=== PATIENT | male | born 1960 | race Caucasian/White ===

== ENCOUNTER 2018-09-21 15:57 | Outpatient (CLI) ==
--- NOTE | 2018-09-21 16:20 | DI ---
EXAM: LEFT ANKLE 3 VIEWS HISTORY: Ankle pain FINDINGS: There is no fracture or dislocation. General bone density appears grossly normal. There is no joint effusion. Tiny surgical clip along the medial distal tibia. Soft tissue edema or swelli ng is noted. IMPRESSION: 1. No fracture or dislocation identified. Soft tissue swelling.
== END 2018-09-21 15:58 | disposition home or self-care (01) ==
LOC: RAD 15:57
PROVIDERS: ATTEND Nurse Practitioner Family
DX: M25.572 Pain in left ankle and joints of left foot (principal)

== ENCOUNTER 2018-10-03 10:54 | Outpatient (CLI) | payer OTHER | END 2018-10-03 10:55 | disposition home or self-care (01) | LOC: RHC-LAB 10:54 | PROVIDERS: ATTEND Nurse Practitioner Family | DX: E11.9 Type 2 diabetes mellitus without complications (principal); I10 Essential (primary) hypertension; Z86.73 Personal history of transient ischemic attack (TIA), and cerebral infarction without residual deficits | CPT/HCPCS: 36415; 80053; 80061; 82043; 83036; 85025 ==

== ENCOUNTER 2018-10-21 11:25 | Emergency (ER) ==
[2018-10-21 11:31] VITALS: BP 120/76; TEMP 98; BMI 34.9
--- NOTE | 2018-10-21 12:10 | ED.PDOC ---
General ED Provider: Dr. BECKA RUIZ Chief Complaint: Medication Refill Stated Complaint: I have hx of cardiac problems, hypertension, previous CABG and on meds. Called office of PCP this week but apparenty meds were not called in and I am worried that I do not have my meds. Would like to get meds refilled. Observed to be in NAD Time Seen by Physician: 11:45 Mode of Arrival: Walk-In Information Source: Patient Exam Limitations: No limitations Primary Care Provider: EZEQUIEL SIMENTAL Nursing and Triage Documentation Reviewed and Agree: Yes Does patient meet sepsis criteria?: No If yes, has appropriate treatment been initiated?: No System Inflammatory Response Syndrome: Not Applicable Sepsis Protocol: For patient's 13 years and over: Temp is 96.8 and below OR 101 and greater Pulse >90 BPM Resp >20/minute Acutely Altered Mental Status Are patient's symptoms suggestive of a new infection, such as: -Pneumonia -Skin, Soft Tissue -Endocarditis -UTI -Bone, Joint Infection -Implantable Device -Acute Abdominal Infection -Wound Infection -Meningitis -Blood Stream Catheter Infection -Unknown Cardiovascular Complaint Exam - Hypertension Complaint/Exam Onset/Duration: several years Symptoms Are: Still present Timing: Intermittent Aggravating: Reports: None Alleviating: Reports: Rest Associated Signs and Symptoms: Denies: Chest pain, Vision changes, Anxiety, Recent stress, Headache, Numbness, Tingling, Weakness, Dizziness, Short of air, Swelling Related History: Denies: Similar episode Related Surgical History: Reports: Cardiac Cath, CABG Cardiac Risk Factors: Reports: Hypertension, CAD Recent Change in Medications: Yes (out of meds) Carotid Bruit Present: No Femoral Pulses Bounding: No Differential Diagnoses: Drug Withdrawal, Hypertension, Other (Out of meds) Review of Systems - Review Of Systems Constitutional: Reports: No symptoms Eyes: Reports: No symptoms Ears, Nose, Mouth, Throat: Reports: No symptoms Respiratory: Reports: No symptoms Cardiac: Reports: No symptoms GI: Reports: No symptoms : Reports: No symptoms Musculoskeletal: Reports: No symptoms Skin: Reports: No symptoms Neurological: Reports: No symptoms Endocrine: Reports: No symptoms Hematologic/Lymphatic: Reports: No symptoms All Other Systems: Reviewed and Negative Past Medical History - Past Medical History Endocrine: Reports: DM 2 Cardiovascular: Reports: CAD, Hypertension Respiratory: Reports: None Hematological: Reports: None Gastrointestinal: Reports: None Genitourinary: Reports: None Neuro/Psych: Reports: None Musculoskeletal: Reports: None Cancer: Reports: None - Surgical History General Surgical History: Reports: Heart Cath, Other (CABG) - Family History Family History: Reports: Unknown - Social History Smoking Status: Former smoker Hx Substance Use: No Alcohol Screening: None Physical Exam - Physical Exam Appearance: Well-appearing, No pain distress, Well-nourished Eyes: JESSICA, EOMI, Conjunctiva clear ENT: Ears normal, Nose normal, Oropharynx normal Respiratory: Airway patent, Breath sounds clear, Breath sounds equal, Respirations nonlabored Cardiovascular: RRR, Pulses normal, No rub, No murmur GI/: Soft, Nontender, No masses, Bowel sounds normal, No Organomegaly Musculoskeletal: Normal strength, ROM intact, No edema, No calf tenderness Skin: Warm, Dry, Normal color Neurological: Sensation intact, Motor intact, Reflexes intact, Cranial nerves intact, Alert, Oriented Psychiatric: Affect appropriate, Mood appropriate Critical Care Note - Critical Care Note Total Time (mins): 0 Course - Course Vital Signs: Temp Pulse Resp BP Pulse Ox 10/21/18 11:25 98.0 F 66 18 120/76 95 RAY Risk Score RAY Risk Score: Risk Score Odds of by 30D 0 0.1 (0.1-0.2) 1 0.3 (0.2-0.3) 2 0.4 (0.3-0.5) 3 0.7 (0.6-0.9) 4 1.2 (1.0-1.5) 5 2.2 (1.9-2.6) 6 3.0 (2.5-3.6) 7 4.8 (3.8-6.1) Departure - Departure Time of Disposition: 12:25 Disposition: HOME SELF-CARE Discharge Problem: Refill clinic medication management patient, Type II diabetes mellitus, CAD ( coronary artery disease) of artery bypass graft Instructions: Heart Healthy Diet (ED) Condition: Good Pt referred to PMD for follow-up: Yes IPMP verified?: Yes Additional Instructions: Keep follow up apt with PCP Prescriptions: Clopidogrel Bisulfate [Plavix] 1 tab PO DAILY #15 tablet Dexlansoprazole [Dexilant] 30 mg PO DAILY #15 romain.bp Empagliflozin [Jardiance] 25 mg PO DAILY #15 tablet Liraglutide [Victoza 3-Sterling] 0.6 mg SQ DAILY #3 pen.injctr Lisinopril [Zestril] 10 mg PO DAILY #15 tab Metoprolol Tartrate 50 mg PO DAILY #15 tablet Pravastatin Sodium [Pravachol] 40 mg PO BEDTIME #15 tablet Allergies/Adverse Reactions: Allergies No Known Allergies Allergy (Unverified 10/21/18 11:31) Home Medications: Ambulatory Orders Aspirin 81 mg PO DAILY 08/10/18 Clopidogrel Bisulfate [Clopidogrel] 75 mg PO DAILY 08/10/18 Dexlansoprazole [Dexilant] 30 mg PO DAILY 08/10/18 Empagliflozin [Jardiance] 25 mg PO DAILY 08/10/18 Liraglutide [Victoza 3-Sterling] 1.2 mg SQ DAILY 08/10/18 Lisinopril 10 mg PO DAILY 08/10/18 Metoprolol Tartrate 50 mg PO DAILY 08/10/18 Pravastatin Sodium 40 mg PO DAILY 08/10/18 Clopidogrel Bisulfate [Plavix] 1 tab PO DAILY #15 tablet 10/21/18 Dexlansoprazole [Dexilant] 30 mg PO DAILY #15 cap.bp 10/21/18 Empagliflozin [Jardiance] 25 mg PO DAILY #15 tablet 10/21/18 Liraglutide [Victoza 3-Sterling] 0.6 mg SQ DAILY #3 pen.injctr 10/21/18 Lisinopril [Zestril] 10 mg PO DAILY #15 tab 10/21/18 Metoprolol Tartrate 50 mg PO DAILY #15 tablet 10/21/18 Pravastatin Sodium [Pravachol] 40 mg PO BEDTIME #15 tablet 10/21/18 Disposition Discussed With: Patient, Family Additional Comments Additional Comments: No other physical complaints
== END 2018-10-21 12:50 | disposition home or self-care (01) ==
LOC: ED 11:25
DX: E11.9 Type 2 diabetes mellitus without complications (principal); I25.810 Atherosclerosis of coronary artery bypass graft(s) without angina pectoris; I10 Essential (primary) hypertension; Z76.0 Encounter for issue of repeat prescription; Z79.899 Other long term (current) drug therapy
CPT/HCPCS: 99282

== ENCOUNTER 2018-12-13 11:56 | Emergency (ER) | payer OTHER ==
[2018-12-13 12:05] VITALS: BP 142/92; TEMP 98.8; BMI 34.3
[2018-12-13] MEDS ORDERED: ZOFRAN 4 MG/2 ML IM STA (12:32)
--- NOTE | 2018-12-13 13:27 | CT ---
EXAM: CT of the abdomen pelvis without contrast History: Vomiting and abdominal pain. Technique: Multiplanar CT images through the abdomen pelvis were obtained without the administration of IV contrast Findings: Heart is mildly enlarged. Lung bases are clear. No acute osseous abnormalities. The liver is fatty. Status post cholecystectomy. Spleen is unremarkable. No renal stones and no hy dronephrosis. No peripancreatic inflammation. Adrenal glands are unremarkable. The appendix is nor mal. No bowel obstruction. No free air and no ascites. No bladder wall thickening. Prostate is no t significantly enlarged. No perirectal inflammation. Colonic diverticulosis. Impression: 1. No acute intra-abdominal or pelvic process. 2. Colonic diverticulosis. 3. Hepatic steatosis
--- NOTE | 2018-12-13 13:29 | DI ---
EXAM: Two views of the chest. History: Cough. Findings: Heart size is normal. Sternotomy wires. No focal consolidation. No appreciable pleural fluid and no pneumothorax. No acute osseous abnormalities. Impression: No acute cardiopulmonary process
--- NOTE | 2018-12-13 14:02 | ED.PDOC ---
General ED Provider: Dr. JUSTYNA HENDERSON Chief Complaint: Nausea/Vomiting Stated Complaint: NAUSEA, VOMITING ABDOMINAL PAIN Time Seen by Physician: 12:00 Mode of Arrival: Walk-In Information Source: Patient Exam Limitations: No limitations Primary Care Provider: EZEQUIEL SIMENTAL Nursing and Triage Documentation Reviewed and Agree: Yes Does patient meet sepsis criteria?: No If yes, has appropriate treatment been initiated?: No (NURSE PRESENT AT ALL TIMES ) System Inflammatory Response Syndrome: Not Applicable Sepsis Protocol: For patient's 13 years and over: Temp is 96.8 and below OR 101 and greater Pulse >90 BPM Resp >20/minute Acutely Altered Mental Status Are patient's symptoms suggestive of a new infection, such as: -Pneumonia -Skin, Soft Tissue -Endocarditis -UTI -Bone, Joint Infection -Implantable Device -Acute Abdominal Infection -Wound Infection -Meningitis -Blood Stream Catheter Infection -Unknown GI Complaint Exam - Abdominal Pain Complaint/Exam Onset: Gradual Duration: TODAY Symptoms Are: Resolved Timing: Intermittent Initial Severity: Moderate Current Severity: None Location of Pain: Diffuse Character: Reports: Cramping Aggravating: Reports: Food Alleviating: Reports: None Associated Signs and Symptoms: Reports: Nausea, Vomiting. Denies: Diaphoresis, Fever, Cough, Chest pain, Dizziness, Back pain, Constipation, Blood in stool, Dysuria, Urinary frequency, Decreased urine output, Decreased appetite, Discharge, Diarrhea, Decreased activity AAA Risk Factors: Reports: None Cardiac Risk Factors: Reports: None Testicular Torsion Risk Factors: Reports: None Surgical Obstruction Risk Factors: Reports: None Related Surgical History: Reports: None Abdominal Findings: Present: None Differential Diagnoses: Appendicitis, Bowel Obstruction, Constipation, Gastroenteritis, Hepatitis, Pancreatitis, Irritable Bowel Syndrome, Ischemic Bowel, AAA, GB, UTI Quality Indicators for AMI: EKG in 10min. Quality Indicators for Cardiac Chest Pain: EKG in 10min. Quality Indicator For Non-Traumatic Chest Pain/Syncope: EKG Performed Review of Systems - Review Of Systems Constitutional: Reports: Malaise Eyes: Reports: No symptoms Ears, Nose, Mouth, Throat: Reports: No symptoms Respiratory: Reports: No symptoms Cardiac: Reports: No symptoms GI: Reports: Abdominal pain, Nausea, Poor appetite, Vomiting : Reports: No symptoms Musculoskeletal: Reports: No symptoms Skin: Reports: No symptoms Neurological: Reports: No symptoms Endocrine: Reports: No symptoms Hematologic/Lymphatic: Reports: No symptoms All Other Systems: Reviewed and Negative Past Medical History - Past Medical History Previously Healthy: Yes Endocrine: Reports: DM 2 Cardiovascular: Reports: CAD, Hypertension Respiratory: Reports: None Hematological: Reports: None Gastrointestinal: Reports: None Genitourinary: Reports: None Neuro/Psych: Reports: None Musculoskeletal: Reports: None Cancer: Reports: None - Surgical History General Surgical History: Reports: Heart Cath, Other (CABG) - Family History Family History: Reports: Unknown - Social History Smoking Status: Former smoker Hx Substance Use: No Alcohol Screening: None Physical Exam - Physical Exam Appearance: Ill-appearing Eyes: JESSICA, EOMI, Conjunctiva clear ENT: Ears normal, Nose normal, Oropharynx normal Respiratory: Airway patent, Breath sounds clear, Breath sounds equal, Respirations nonlabored Cardiovascular: RRR, Pulses normal, No rub, No murmur GI/: Soft, Nontender, No masses, Bowel sounds normal, No Organomegaly Musculoskeletal: Normal strength, ROM intact, No edema, No calf tenderness Skin: Warm, Dry, Normal color Neurological: Sensation intact, Motor intact, Reflexes intact, Cranial nerves intact, Alert, Oriented Psychiatric: Affect appropriate, Mood appropriate Interpretation - Radiology Interpretation Radiology Interpretation By: Radiologist Radiology Results: No acute changes Exam Interpreted: CT Scan Re-Evaluation - Re-Evaluation Time of Re-Evaluation: 13:00 Status: Improved Vital Signs Stable: Yes Pain Level: 0 Appearance: NAD Lungs: Clear Skin: Warm and Dry Neuro: Alert and Oriented X3 CV: RRR Additional Comments: NO FURTHER VOMITING - Re-Evaluation Time of Re-Evaluation: 14:02 Status: Improved Vital Signs Stable: Yes Pain Level: 0 Appearance: NAD Skin: Warm and Dry Neuro: Alert and Oriented X3 CV: RRR (NO VOMITING) Critical Care Note - Critical Care Note Total Time (mins): 0 Course - Course Hematology/Chemistry: 12/13/18 12:48 12/13/18 12:48 Orders, Labs, Meds: Lab Review 12/13/18 12/13/18 12/13/18 12:48 12:48 13:00 WBC 10.77 H RBC 5.44 Hgb 17.8 Hct 50.9 MCV 93.6 MCH 32.7 H MCHC 35.0 RDW Coeff of Clark 12.9 Plt Count 154 Immature Gran % (Auto) 0.4 Neut % (Auto) 89.0 Lymph % (Auto) 5.7 L Russell % (Auto) 4.5 Eos % (Auto) 0.1 Baso % (Auto) 0.3 Immature Gran # (Auto) 0.0 Neut # (Auto) 9.6 H Lymph # (Auto) 0.6 Russell # (Auto) 0.5 Eos # (Auto) 0.0 Baso # (Auto) 0.0 Sodium 136.3 Potassium 4.64 Chloride 100.4 Carbon Dioxide 20.1 L Anion Gap 20.44 BUN 22.8 H Creatinine 1.09 Estimated GFR (MDRD) 69.00 BUN/Creatinine Ratio 20.91 Glucose 140.9 H Calcium 9.62 Total Bilirubin 1.03 AST 29.2 ALT 31.4 Alkaline Phosphatase 69.6 Total Creatine Kinase 119.5 CK-MB (CK-2) 3.740 H CK-MB (CK-2) % 3.1200 Troponin I < 0.012 Total Protein 8.69 H Albumin 5.20 H Globulin 3.49 Albumin/Globulin Ratio 1.48 Amylase 76.2 Lipase 78.4 Urine Color Yellow Urine Clarity Clear Urine pH 5.0 Ur Specific [place] 1.025 Urine Protein Negative Urine Glucose (UA) 2+ Urine Ketones 1+ Urine Blood Negative Urine Nitrite Negative Urine Bilirubin Negative Urine Urobilinogen 0.2 Ur Leukocyte Esterase Negative Orders Category Date Time Status EKG-(ED ONLY) Stat CARDIO 12/13/18 12:32 Completed AMYLASE Stat LAB 12/13/18 12:48 Completed CBC W/ AUTO DIFF Stat LAB 12/13/18 12:48 Completed COMPREHENSIVE METABOLIC PANEL Stat LAB 12/13/18 12:48 Completed CREATINE KINASE Stat LAB 12/13/18 12:48 Completed LIPASE Stat LAB 12/13/18 12:48 Completed RAPID STREP SCREEN [MOLECULAR GROUP A STREP] Stat LAB 12/13/18 12:45 Completed TROPONIN I Stat LAB 12/13/18 12:48 Completed URINALYSIS C & S IF INDICATED Stat LAB 12/13/18 13:00 Completed Ondansetron HCl/Pf [Zofran 4 mg/2 ml] MEDS 12/13/18 12:32 Discontinued 4 mg IM ONCE STA CHEST, 2 VIEWS PA & LAT Stat RADS 12/13/18 12:[address] ABDOMEN/PELVIS WO CONTRAST Stat RADS 12/13/18 12:32 Completed Medications Discontinued Medications Generic Name Dose Route Start Last Admin Trade Name Freq PRN Reason Stop Dose Admin Ondansetron HCl 4 mg 12/13/18 12:32 12/13/18 12:51 Zofran 4 Mg/2 Ml IM 12/13/18 12:33 4 mg ONCE STA Administration Vital Signs: Temp Pulse Resp BP Pulse Ox 12/13/18 11:57 98.8 F 96 H 20 142/92 H 92 L Departure - Departure Time of Disposition: 14:02 (WITH KAL IN THE ROOM I DISCUSSED ALL THE LABS . GAVE THE D/C INST. NO VOMITING IN E.D.) Disposition: HOME SELF-CARE Discharge Problem: Nausea, Vomiting Abdominal pain Qualifiers: Abdominal location: generalized Qualified Code(s): R10.84 - Generalized abdominal pain Instructions: Abdominal Pain (ED), Acute Nausea and Vomiting (ED) Condition: Good Pt referred to PMD for follow-up: Yes IPMP verified?: No Additional Instructions: Please call your Family Physician as soon as possible to schedule a follow-up appointment. Prescriptions: Ondansetron HCl [Zofran] 4 mg PO BID 2 Days #5 tablet Allergies/Adverse Reactions: Allergies No Known Allergies Allergy (Verified 12/13/18 12:05) Home Medications: Ambulatory Orders Aspirin 81 mg PO DAILY 08/10/18 Bimatoprost [Lumigan] 1 drop OP BEDTIME 12/13/18 Ondansetron HCl [Zofran] 4 mg PO BID 2 Days #5 tablet 12/13/18
== END 2018-12-13 14:28 | disposition home or self-care (01) ==
LOC: ED 11:56
DX: R11.2 Nausea with vomiting, unspecified (principal); R10.84 Generalized abdominal pain; E11.9 Type 2 diabetes mellitus without complications; I10 Essential (primary) hypertension; I25.810 Atherosclerosis of coronary artery bypass graft(s) without angina pectoris
CPT/HCPCS: 36415; 80053; 81001; 82150; 82550; 82553; 83690; 84484; 85025; 87651; 93005; 93010; 96372; 99283

== ENCOUNTER 2019-01-06 23:07 | Observation (INO) | payer OTHER ==
--- NOTE | 2019-01-06 23:29 | ED.PDOC ---
General ED Provider: Dr. DULCE HOPKINS Chief Complaint: Nausea/Vomiting Stated Complaint: is a 58 year old male who comes to the ER with c/o chest pain located mid-sternal, no radiation associated with nausea & vomiting. Has a prior history of CAD with stents and CABG. When he burps it goes away. has been occuring every 1-2 hours. Time Seen by Physician: 23:27 Mode of Arrival: Walk-In Information Source: Patient Primary Care Provider: EZEQUIEL SIMENTAL Nursing and Triage Documentation Reviewed and Agree: Yes Does patient meet sepsis criteria?: No System Inflammatory Response Syndrome: Not Applicable Sepsis Protocol: For patient's 13 years and over: Temp is 96.8 and below OR 101 and greater Pulse >90 BPM Resp >20/minute Acutely Altered Mental Status Are patient's symptoms suggestive of a new infection, such as: -Pneumonia -Skin, Soft Tissue -Endocarditis -UTI -Bone, Joint Infection -Implantable Device -Acute Abdominal Infection -Wound Infection -Meningitis -Blood Stream Catheter Infection -Unknown Cardiovascular Complaint Exam - Chest Pain Complaint/Exam Onset: Gradual Duration: 2 days Symptoms Are: Still present Timing: Intermittent Length of Chest Pain Episodes: few minutes Initial Severity: Severe Current Severity: None Location: Reports: Midsternal Pain Radiates: Reports: None Character: Reports: Dull, Pressure Aggravating: Reports: Exertion, Movement Alleviating: Reports: Rest Associated Signs and Symptoms: Reports: Diaphoresis, Nausea, Vomiting, Cough, Short of air Related History: Reports: Similar episode (like prior NM ) Related Surgical History: Reports: None History of Healthcare-Acquired Pneumonia: Reports: No AMI/ACS Risk Factors: Reports: Myocardial Infarction TAD Risk Factors: Reports: None Pulmonary Embolism Risk Factors: Reports: None Prior Care for this Complaint: Yes (3 weeks ago here ) Recent Stress Test: No Recent Echo/LV Function: No JVD Present: No Subcutaneous Emphysema Present: No Diminshed Breath Sounds: Yes Reproducible Chest Wall Pain: No Bilateral Pulses Present: No Unequal Pulses Noted: No If Risk Factors for AMI/ACS Consider: EKG, Cardiac Enzymes, Serial Studies, Oxygen Care and Dx Studies Discussed With: Family Senior Specialist Consulted: No Differential Diagnoses: Acute NM, ACS, Pulmonary Edema, Chest Wall Pain Quality Indicators For Acute NM or Cardiac Chest Pain: EKG in 10min. Review of Systems - Review Of Systems Constitutional: Reports: No symptoms Eyes: Reports: No symptoms Ears, Nose, Mouth, Throat: Reports: No symptoms Respiratory: Reports: Cough Cardiac: Reports: Chest pain GI: Reports: Nausea, Vomiting : Reports: No symptoms Musculoskeletal: Reports: No symptoms Skin: Reports: No symptoms Neurological: Reports: Anxiety Endocrine: Reports: No symptoms Hematologic/Lymphatic: Reports: No symptoms All Other Systems: Reviewed and Negative Past Medical History - Past Medical History Previously Healthy: Yes Endocrine: Reports: DM 2 Cardiovascular: Reports: CAD, Hypertension Respiratory: Reports: None Hematological: Reports: None Gastrointestinal: Reports: None Genitourinary: Reports: None Neuro/Psych: Reports: None Musculoskeletal: Reports: None Cancer: Reports: None - Surgical History General Surgical History: Reports: Heart Cath, Other (CABG) - Family History Family History: Reports: Unknown - Social History Smoking Status: Former smoker Hx Substance Use: No Alcohol Screening: None Physical Exam - Physical Exam Appearance: Ill-appearing Ill-appearing: Moderate Pain Distress: Mild Eyes: JESSICA, EOMI, Conjunctiva clear ENT: Ears normal Respiratory: Breath sounds diminished Cardiovascular: RRR, Pulses normal, No rub, No murmur GI/: Soft, Nontender, No masses, Bowel sounds normal, No Organomegaly Musculoskeletal: Normal strength, ROM intact, No edema, No calf tenderness Skin: Warm, Dry, Normal color Neurological: Alert, Oriented Psychiatric: Anxious Interpretation - EKG Interpretation Time of EKG #1: 23:16 Rate: Normal Rhythm: Sinus Ectopy: None [place]: [place] ST Segment: Other (abnormal) Interpretation: possible lateral ischemia Critical Care Note - Critical Care Note Total Time (mins): 30 Course - Course Hematology/Chemistry: 01/06/19 23:24 01/06/19 23:24 Orders, Labs, Meds: Lab Review 01/06/19 01/06/19 01/06/19 23:24 23:24 23:24 WBC 8.06 RBC 5.24 Hgb 16.9 Hct 49.6 MCV 94.7 H MCH 32.3 H MCHC 34.1 RDW Coeff of Clark 13.1 Plt Count 143 Immature Gran % (Auto) 0.6 Neut % (Auto) 79.9 Lymph % (Auto) 8.9 L Boyle % (Auto) 6.3 Eos % (Auto) 3.8 Baso % (Auto) 0.5 Immature Gran # (Auto) 0.1 Neut # (Auto) 6.4 Lymph # (Auto) 0.7 Boyle # (Auto) 0.5 Eos # (Auto) 0.3 Baso # (Auto) 0.0 D-Dimer (Manual) 240.74 Sodium 139.3 Potassium 4.19 Chloride 104.5 Carbon Dioxide 18.2 L Anion Gap 20.79 BUN 21.5 H Creatinine 1.09 Estimated GFR (MDRD) 69.00 BUN/Creatinine Ratio 19.72 Glucose 167.2 H Calcium 9.18 Total Bilirubin 0.90 AST 28.1 ALT 25.8 Alkaline Phosphatase 72.3 Total Creatine Kinase 86.4 Troponin I < 0.012 Total Protein 7.92 Albumin 4.63 Globulin 3.29 Albumin/Globulin Ratio 1.40 Orders Category Date Time Status EKG-(ED ONLY) Stat CARDIO 01/06/19 23:27 Completed EKG-(IP & OP ONLY) Routine CARDIO 01/07/19 07:00 Completed ACCUCHECK (MED/SURG, SCU) [BLOOD GLUCOSE MONITORING] CARE 01/07/19 01:13 Active 0630,1100,1700,2100 INTAKE & OUTPUT Q8HR CARE 01/07/19 01:08 Active VITAL SIGNS Q2HR CARE 01/07/19 01:08 Active NPO - EXCEPT MAY GIVE PO MEDS DIETARY 01/07/19 Breakfast Ordered IV [ED IV/MEDIPORT/POWERPORT] .ONCE EMERGENCY 01/06/19 23:45 Active BASIC METABOLIC PANEL DAILY@0600 LAB 01/07/19 07:15 Ordered BASIC METABOLIC PANEL DAILY@0600 LAB 01/08/19 06:00 Ordered CBC W/ AUTO DIFF DAILY@0600 LAB 01/07/19 07:15 Ordered CBC W/ AUTO DIFF DAILY@0600 LAB 01/08/19 06:00 Ordered CBC W/ AUTO DIFF Stat LAB 01/06/19 23:24 Completed COMPREHENSIVE METABOLIC PANEL Stat LAB 01/06/19 23:24 Completed CREATINE KINASE Q8H LAB 01/07/19 15:15 Ordered CREATINE KINASE Routine LAB 01/07/19 07:15 Ordered CREATINE KINASE Stat LAB 01/06/19 23:24 Completed D-DIMER Stat LAB 01/06/19 23:24 Completed HEMOGLOBIN A1C Routine LAB 01/07/19 07:15 Ordered LIPASE Routine LAB 01/07/19 07:15 Ordered TROPONIN I Q8H LAB 01/07/19 15:15 Ordered TROPONIN I Routine LAB 01/07/19 07:15 Ordered TROPONIN I Stat LAB 01/06/19 23:24 Completed 0.9 % Sodium Chloride [Saline Flush] MEDS 01/06/19 23:45 Active 1 syr IVF PRN PRN Aspirin [Aspirin Chewable] MEDS 01/07/19 08:00 Active 81 mg PO DAILYWM Clopidogrel Bisulfate [Plavix] MEDS 01/07/19 09:00 Active 75 mg PO DAILY Empagliflozin [Jardiance] MEDS 01/07/19 09:00 Active 25 mg PO DAILY Enoxaparin Sodium [Lovenox] MEDS 01/07/19 09:00 Active 40 mg SUBCUT DAILY Liraglutide [Victoza 3-Sterling] MEDS 01/07/19 09:00 Active 0.6 mg SQ DAILY Lisinopril [Zestril] MEDS 01/07/19 09:00 Active 10 mg PO DAILY Metoprolol Tartrate [Lopressor] MEDS 01/07/19 09:00 Active 50 mg PO DAILY Ondansetron HCl/Pf [Zofran 4 mg/2 ml] MEDS 01/06/19 23:39 Discontinued 4 mg IVP ONCE STA Ondansetron HCl/Pf [Zofran 4 mg/2 ml] MEDS 01/07/19 01:10 Active 4 mg IVP Q6H PRN Pantoprazole Sodium [Protonix IV] MEDS 01/07/19 09:00 Active 40 mg IVP DAILY Pantoprazole Sodium [Protonix IV] MEDS 01/06/19 23:39 Discontinued 40 mg IVP ONCE STA Pravastatin Sodium [Pravachol] MEDS 01/07/19 21:00 Active 40 mg PO BEDTIME RESUSCITATION STATUS Routine OTHERS 01/07/19 01:08 Ordered CHEST, 1V AP ONLY Stat RADS 01/06/19 23:39 Completed Medications Generic Name Dose Route Start Last Admin Trade Name Freq PRN Reason Stop Dose Admin Aspirin 81 mg 01/07/19 08:00 Aspirin Chewable PO DAILYWM [facility] Clopidogrel Bisulfate 75 mg 01/07/19 09:00 Plavix PO DAILY LANA Enoxaparin Sodium 40 mg 01/07/19 09:00 Lovenox SUBCUT DAILY LANA Insulin Human Regular 0 - 8 unit 01/07/19 01:14 Humulin R SUBCUT PRN PRN Hyperglycemia Protocol Lisinopril 10 mg 01/07/19 09:00 Zestril PO DAILY LANA Metoprolol Tartrate 50 mg 01/07/19 09:00 Lopressor PO DAILY LANA Non-Formulary Medication 25 mg 01/07/19 09:00 Empagliflozin [Jardiance] PO DAILY LANA Non-Formulary Medication 0.6 mg 01/07/19 09:00 Liraglutide [Victoza 3-Sterling] SQ DAILY LANA Ondansetron HCl 4 mg 01/07/19 01:10 Zofran 4 Mg/2 Ml IVP Q6H PRN Nausea / Vomiting Pantoprazole Sodium 40 mg 01/07/19 09:00 Protonix Iv IVP DAILY LANA Pravastatin Sodium 40 mg 01/07/19 21:00 Pravachol PO BEDTIME LANA Sodium Chloride 1 syr 01/06/19 23:45 01/06/19 23:51 Saline Flush IVF 1 syr PRN PRN Administration To flush IV Discontinued Medications Generic Name Dose Route Start Last Admin Trade Name Freq PRN Reason Stop Dose Admin Ondansetron HCl 4 mg 01/06/19 23:39 01/06/19 23:50 Zofran 4 Mg/2 Ml IVP 01/06/19 23:40 4 mg ONCE STA Administration Pantoprazole Sodium 40 mg 01/06/19 23:39 01/06/19 23:50 Protonix Iv IVP 01/06/19 23:40 40 mg ONCE STA Administration Vital Signs: Temp Pulse Resp BP Pulse Ox 01/07/19 00:15 98.7 F 91 H 26 H 106/66 95 01/06/19 23:25 98.6 F 79 17 120/77 95 RAY Risk Score Age >/= 65: No >/= 3 CAD Risk Factors: Yes Known CAD (Stenosis >/= 50%): Yes ASA Use in Past 7 Days: Yes Severe Angina (>/= 2 episodes in 24 hours): Yes EKG ST Changes >/= 0.5mm: No Postive Cardiac Marker: No RAY Total Score: 4 RAY Risk Score: Risk Score Odds of by 30D 0 0.1 (0.1-0.2) 1 0.3 (0.2-0.3) 2 0.4 (0.3-0.5) 3 0.7 (0.6-0.9) 4 1.2 (1.0-1.5) 5 2.2 (1.9-2.6) 6 3.0 (2.5-3.6) 7 4.8 (3.8-6.1) Departure - Departure Time of Disposition: 01:20 Disposition: PLACED OBSERVATION Discharge Problem: Chest pain in adult Condition: Stable Pt referred to PMD for follow-up: Yes IPMP verified?: No Allergies/Adverse Reactions: Allergies No Known Allergies Allergy (Verified 12/13/18 12:05) Home Medications: Ambulatory Orders Aspirin 81 mg PO DAILY 08/10/18 Ondansetron HCl [Zofran] 4 mg PO BID 2 Days #5 tablet 12/13/18
[2019-01-06] MEDS ORDERED: PROTONIX IV IVP STA (23:39)
[2019-01-06] MEDS ORDERED: ZOFRAN 4 MG/2 ML IVP STA (23:39)
--- NOTE | 2019-01-07 00:24 | DI ---
EXAM: Chest, one-view HISTORY: Cough FINDINGS: Cardiac and mediastinal contours are normal. Pulmonary vasculature is normal. Minor line ar atelectasis in the left base. The lungs are clear otherwise. Prior mediastinotomy. No acute nuzhat st wall abnormality. IMPRESSION: Minor linear atelectasis in the left base. Negative exam otherwise.
[2019-01-07] MEDS ORDERED: ZOFRAN 4 MG/2 ML IVP PRN (01:10)
[2019-01-07] MEDS ORDERED: HUMULIN R SUBCUT PRN (01:14)
[2019-01-07 02:01] VITALS: BMI 34.4
--- NOTE | 2019-01-07 07:15 | PCM ---
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 patients can lose up to 2x the weight by keeping track of foods. Offered handout on weight loss techniques. Apps that may be of benefit include [employer], Lose it. Regular exercise encouraged. Start with walking 5-10 minutes at a pace that is difficult to carry a conversation. If chest pain/SOA stop and f/u in office. DVT Prophy: Lovenox 40mg subcutaneous Diet: NPO for stress test Code: Full Activity: UP ad parminder Disposition: The next step for patient depends on the findings from the stress test. He noted he can ambulate. We will get stress test. If negative send home , if Positive refer to acute care hospital. Short NC/Long QTC today. Monitor with telemetry, keep cardiology appt 01/16/19. >70 minutes spent with patient today, reviewing ER records, talking with ER provider, nurse, reviewing 2 sets of labs, outpatient records, discussing with , with patient, reviewing above. Plan at present is contingent on results of the Stress test. He notes he can do treadmill. It appears that he established with SHANTAL Feliz 07/2018 then saw SHANTAL toussaint a few times for f/u. At present it appears he would still be [employer] crumbles patient. WIll allow patient to decide where he wants f/u.
[2019-01-07] MEDS ORDERED: ASPIRIN CHEWABLE PO SCH (08:00)
[2019-01-07] MEDS ORDERED: NON-FORMULARY MEDICATION (Empagliflozin [Jardiance] 25 MG) PO SCH (09:00)
[2019-01-07] MEDS ORDERED: PLAVIX PO SCH (09:00)
[2019-01-07] MEDS ORDERED: LOVENOX SUBCUT SCH (09:00)
[2019-01-07] MEDS ORDERED: PROTONIX IV IVP SCH (09:00)
[2019-01-07] MEDS ORDERED: LOPRESSOR PO SCH (09:00)
[2019-01-07] MEDS ORDERED: NON-FORMULARY MEDICATION (Liraglutide [Victoza 3-Pak] 0.6 MG) SQ SCH (09:00)
[2019-01-07] MEDS ORDERED: ZESTRIL PO SCH (09:00)
[2019-01-07 12:18] VITALS: BP 132/74; TEMP 98.1
--- NOTE | 2019-01-07 14:03 | PCM.DC ---
Final Diagnosis: (1) Epigastric pain Status: Acute Code(s): R10.13 - EPIGASTRIC PAIN SNOMED Code(s): 08031098 (2) Bloating Status: Acute Code(s): R14.0 - ABDOMINAL DISTENSION (GASEOUS) SNOMED Code(s) : 015766089 (3) CAD (coronary artery disease) Status: Acute Code(s): I25.10 - ATHSCL HEART DISEASE OF [place] CORONARY ARTERY W/O ANG PCTRS SNOMED Code(s): 47052270 (4) Type 2 diabetes mellitus with hemoglobin A1c goal of less than 7.0% Status: Acute Code(s): E11.9 - TYPE 2 DIABETES MELLITUS WITHOUT COMPLICATIONS SNOMED Code(s): 67762014 (5) Essential (primary) hypertension Status: Acute Code(s): I10 - ESSENTIAL (PRIMARY) HYPERTENSION SNOMED Code(s) : 81127426 (6) Hyperlipidemia Status: Acute Code(s): E78.5 - HYPERLIPIDEMIA, UNSPECIFIED SNOMED Code(s): 84758099 (7) BMI 34.0-34.9,adult Status: Acute Code(s): Z68.34 - BODY MASS INDEX (BMI) 34.0-34.9, ADULT SNOMED Code(s): 873794928 (8) Former smoker Status: Acute Code(s): Z87.891 - PERSONAL HISTORY OF NICOTINE DEPENDENCE SNOMED Code(s): 8016461 (9) Skin lesion Status: Acute Code(s): L98.9 - DISORDER OF THE SKIN AND SUBCUTANEOUS TISSUE, UNSPECIFIED SNOMED Code(s): 94804087 (10) Chest pain in adult Status: Acute Code(s): R07.9 - CHEST PAIN, UNSPECIFIED SNOMED Code(s): 66362435 Reason for Hospitalization: Chest pain r/o ACS Prognosis at Discharge: Not ACS, non cardiac source of pain suspect GI. Can w/u as outpatient Condition at Discharge: Stable, no abd pain, no Nausea/vomiting/diarrhea/constipation Medications at Discharge: Ambulatory Orders Medication Instructions Recorded Aspirin 81 mg PO DAILY 08/10/18 Ondansetron HCl [Zofran] 4 mg PO BID 2 Days #5 tablet 12/13/18 Sucralfate [Carafate] 1 gm PO ACHS 10 Days #40 tablet 01/07/19 Lab/Diagnostics: Laboratory Results - last 24 hr 01/06/19 01/06/19 01/06/19 23:24 23:24 23:24 WBC 8.06 RBC 5.24 Hgb 16.9 Hct 49.6 MCV 94.7 H MCH 32.3 H MCHC 34.1 RDW Coeff of Clark 13.1 Plt Count 143 Immature Gran % (Auto) 0.6 Neut % (Auto) 79.9 Lymph % (Auto) 8.9 L Rabun % (Auto) 6.3 Eos % (Auto) 3.8 Baso % (Auto) 0.5 Immature Gran # (Auto) 0.1 Neut # (Auto) 6.4 Lymph # (Auto) 0.7 Rabun # (Auto) 0.5 Eos # (Auto) 0.3 Baso # (Auto) 0.0 D-Dimer (Manual) 240.74 Sodium 139.3 Potassium 4.19 Chloride 104.5 Carbon Dioxide 18.2 L Anion Gap 20.79 BUN 21.5 H Creatinine 1.09 Estimated GFR (MDRD) 69.00 BUN/Creatinine Ratio 19.72 Glucose 167.2 H Hemoglobin A1c Calcium 9.18 Total Bilirubin 0.90 AST 28.1 ALT 25.8 Alkaline Phosphatase 72.3 Total Creatine Kinase 86.4 Troponin I < 0.012 Total Protein 7.92 Albumin 4.63 Globulin 3.29 Albumin/Globulin Ratio 1.40 Triglycerides Cholesterol LDL Cholesterol, Calc VLDL Cholesterol HDL Cholesterol Cholesterol/HDL Ratio Lipase 01/07/19 01/07/19 01/07/19 07:35 07:35 07:35 WBC 5.80 RBC 5.25 Hgb 17.1 Hct 49.3 MCV 93.9 MCH 32.6 H MCHC 34.7 RDW Coeff of Clark 13.1 Plt Count 151 Immature Gran % (Auto) 0.7 Neut % (Auto) 81.6 Lymph % (Auto) 9.3 L Rabun % (Auto) 7.1 Eos % (Auto) 1.0 Baso % (Auto) 0.3 Immature Gran # (Auto) 0.0 Neut # (Auto) 4.7 Lymph # (Auto) 0.5 L Rabun # (Auto) 0.4 Eos # (Auto) 0.1 Baso # (Auto) 0.0 D-Dimer (Manual) Sodium 138.0 Potassium 4.25 Chloride 102.8 Carbon Dioxide 21.4 L Anion Gap 18.05 BUN 22.1 H Creatinine 1.06 Estimated GFR (MDRD) 72.00 BUN/Creatinine Ratio 20.84 Glucose 149.2 H Hemoglobin A1c 5.81 Calcium 8.93 Total Bilirubin AST ALT Alkaline Phosphatase Total Creatine Kinase 62.9 Troponin I < 0.012 Total Protein Albumin Globulin Albumin/Globulin Ratio Triglycerides Cholesterol LDL Cholesterol, Calc VLDL Cholesterol HDL Cholesterol Cholesterol/HDL Ratio Lipase 123.6 01/07/19 07:35 WBC RBC Hgb Hct MCV MCH MCHC RDW Coeff of Clark Plt Count Immature Gran % (Auto) Neut % (Auto) Lymph % (Auto) Rabun % (Auto) Eos % (Auto) Baso % (Auto) Immature Gran # (Auto) Neut # (Auto) Lymph # (Auto) Rabun # (Auto) Eos # (Auto) Baso # (Auto) D-Dimer (Manual) Sodium Potassium Chloride Carbon Dioxide Anion Gap BUN Creatinine Estimated GFR (MDRD) BUN/Creatinine Ratio Glucose Hemoglobin A1c Calcium Total Bilirubin AST ALT Alkaline Phosphatase Total Creatine Kinase Troponin I Total Protein Albumin Globulin Albumin/Globulin Ratio Triglycerides 149.3 Cholesterol 113.2 LDL Cholesterol, Calc 44 VLDL Cholesterol 30 HDL Cholesterol 39.2 Cholesterol/HDL Ratio 2.9 L Lipase Education Provided to Patient and Family: 1. PUD 2. Chest pain: ACS/LA discussion with patient 3. Weight loss 4. Diabetes/medications 5. HTN/Medications 6. Hyperlipidemia/Medications 7. Skin lesion (derm referral placed 07/2018). Follow-ups: 1 week with clinic Keep appt with cardiology 01/16/19. Derm referral Disposition: HOME SELF-CARE Hospital Course: 58 yo CM patient of SHANTAL Mora/Yumiko presented to ED 01/06/19 23:27 w/ c/o chest pain located midsternal. Rated pain as pressure like, no radiation, mixed with N/V. History of CAD, stents, CABG, no recent stress over last 7 years. Increased belching and then symptoms kishore for a short while. Sx came on suddenly ~2-3 hours prior to ER evaluation and have not gone away completely. He walked into ER tonight.Vitals in the ER showed 23:25 98.6, pulse 79, RR 17, BP 120/77, po2 95 and at 00:15 showed temp 98.7, pulse 91, rr 26 and bp 106/66. Labs completed showed normal CBC with WBC 8.06, hgb 16.9, plt 143. Ddimer was negative, CMP was essentially negative except elevated glucose at 167.2 and known history of DM 2 controlled (last A1C 5.85 10/03/18). Sodium 139.3, k+ 4.19, c02 18.2, creatinine 1.09, which appears to be close to his baseline (1.09 12/13/18 and 1.00 10/03/18). Calcium 9.18, total bili 0.90. AST 28.1, ALT 25.8. Initial cardiac enzymes were negative with troponin I < 0.012 and CK 86.4. Within ER he was given zofran IVP, protonix IV and CXR was collected showing minimal linear atelectasis Left lower base. He did not meet SIRS criteria, he has no e/o source for infection. At 1:03 am 01/07/19 Dr. Holden and I discussed the patient care 1:1. EKG reviewed by ER doctor and reported as NSR, with possible lateral ischemia. Patient symptoms had actually been colicky over last 2-3 days still present coming and going lasting a few minutes at a time. Worse with movement/exertion, midsternal pain with diaphoresis, N/V/cough/SOA. Similar episode like prior LA. He was seen 3 weeks ago for similar complaint and evaluated by Dr. Booth w/ c/o N/V/ abd pain. He was d/c home with abd pain at that time. Abd pelvis CT 12/13/18 colonic diverticulosis, fatty liver and no acute process was noted. CXR at that visit was negative. Comparison of labs showed he had a WBC elevation to 10.77 which is not present now. Torponin was negative then as now and his CMP was essentially unchanged compared to now. In our ER today he had an EKG within 10 minuts of arrival. Concern for ?ACS/pulmonary edema/chest wall pain, the ED contact myself to admit patient for observation. He has history of cataract, recurrent chest pain, chronic arthritis, DM 2 controlled, Hyperlipidemia, HTN, history of LA, chronic SOA, EDNA on cpap/O2, surgical history of heart cath, CABG 2017 at [facility], cholecystectomy. Ddx discussed with Dr. Holden to be cardiac related, GI related, pulm related. We will admit to obs to r/o ACS. tori present in room today. They noted, as above, same sx 3 weeks. No recent stress >5 years. He did not remember which hospital did it. No recent NSAiDS, no ETOH, belching/abd pain and noted history of ulcers. Last BM 2 days ago, NL. He has appt scheduled 01/16/19 with [facility], I recommended that he keep that appt. HE reports bloating at this time. Formerly from [place], was a patient of Dr. Melony Pacheco and then [facility]. Met with SHANTAL Feliz 07/2018 for the first time. Planned at that time return to [place]. He has been referred to DR. Cr for his EDNA/overnight O2 needs that he will not wear. He has apnea, DM which is controlled, history of CVA as well. He was referred to derm historically 07/2018 as well. Repeat labs 07:35 showed CBC to be WNL WBC 5.80, hgb 17.1, plt 151. Lipid panel trigly 149.3 , cholesterol 113.2, ldl 44 (continue the pravastatin at current dose), HDL 39.2 A1C 5.81. CMP unremarkable except Creatinine 1.06 and glucose 149.2. Stress test and Echocardiogram did not support active LA/ACS. The patient was seen by me again at 14:10 and I relayed information. I will provide patient with carafate. He has listed dexilant at home. I will have him see us this coming week, if sx continue consider h. Pylori stool ag. Cannot use exhale test as he has been on PPI. Asymptomatic in hospital. CBC unremarkable, Ddimer negative, lipid panel unremarkable LDL 44, HDL 39.2. CMP WNL, a1c 5.81. Troponin negative x 2, lipase negative. CXR linear atelectasis. With negative stress/negative echo and 2 negative Troponin, this is not likely ACS and I am comfortable getting patient to be sent home. F/U with office this week. Health maximized through hospitalization. Suspect GI source of his symptoms controlled for now. With his A1C <6.0 I will stop the victoza and we will continue jardiance. He noted understanding. Day of d/c physical exam: Vital Signs - 24 hr 01/06/19 01/07/19 01/07/19 23:25 00:15 01:39 Temperature 98.6 F 98.7 F 98.9 F Pulse Rate 79 91 H 83 Respiratory 17 26 H 18 Rate Blood Pressure 120/77 106/66 O2 Sat by Pulse 95 95 94 L Oximetry 01/07/19 01/07/19 01/07/19 02:00 06:00 08:00 Temperature 98.9 F 100.1 F H Pulse Rate 83 76 Respiratory 20 22 18 Rate Blood Pressure 128/87 106/74 104/74 O2 Sat by Pulse 94 L 92 L Oximetry 01/07/19 12:00 Temperature 98.1 F Pulse Rate 69 Respiratory 18 Rate Blood Pressure 132/74 O2 Sat by Pulse Oximetry Constitutional: Appearance-No acute distress, no respiratory distress, Consistent with stated age. Orientation- Oriented x 3, alert Build and Nutrition -[obese male 34.5 BMI] General- Patient is pleasant and cooperative with the interview and exam. Tori present in room today. Integumentary: General-No rashes, ulcers or lesions. Palpation- Normal skin moisture/turgor. Skin is warm to touch, appropriate. Capillary refill is normal bilateral Upper and lower extremity. 7mm crusted dome shaped lesion left apex of scalp (will f/u with this as outpatient and refer to derm. SCC vs dermatofibroma/keratoacanthoma). Midline sternal scar. Head/Neck: Head- normocephalic and atraumatic. Neck- without visible/palpable lumps or pulsations. Palpation- No bony tenderness about head/neck along frontal, occipital, temporal, parietal, mastoid, jawline, zygoma, orbit or any other location. NO temporal artery tenderness. No TMJ tenderness. Neck Supple. Thyroid-No thyromegaly, no nodules (See above for skin of scalp). Eye: Bilaterally PERRLA, EOMI. No discharge. Upper and lower eyelids are normal. Sclera/conjunctiva normal without discharge. Cornea is normal and clear. Lens is normal. Eyeball appears normal. No ciliary flushing, no conjunctival injection. ENMT: Pinna- normal without tenderness or erythema. External auditory canal Left- normal without erythema or discharge, no excessive cerumen. External auditory canal Right-normal without erythema or discharge, no excessive cerumen. TM left- Kemp/pearly, normal light reflex and anatomy TM Right- Kemp/ pearly, normal light reflex and anatomy Hearing Assessment-normal to conversational speech. Nose and sinus- No sinus tenderness along frontal/ maxillary region. External appearance normal and midline. Nares- bilateral quiet airflow, no discharge. Nasal mucosa- No bleeding noted and no ulcerations observed. [place], moist. Turbinates non boggy. Lips- normal color, moist without cracks/lesions Oral Cavity/Palate- hard/soft palate intact without lesions, oral mucosa pink and moist. Tongue normal midline. Oropharynx- no pharyngeal erythema, Uvula midline. No post nasal drip. No exudate. Salivary glands- Non tender to palpation CHEST/LUNG: Inspection- symmetric chest wall no pectus deformity. Normal effort , no distress, no use of accessory muscles. Palpation- nontender sternum, ribline. No abnormal pulsations. Auscultation- Breath sounds mildly coarse throughout, no distress, mild wheezing throughout and rhonchi, no rales. normal throughout all lung atwood. Normal tracheal sounds, Normal bronchial sounds overlying sternum, Bronchovessicular sounds normal between scapulae posteriorly , Normal vessicular breath sounds heard throughout periphery. Lungs are clear today. Adventitious sounds- scattered wheezes, NO rales, Scattered rhonchi. CARDIOVASCULAR: Carotid artery- normal, no bruits or abnormal pulsations. Jugular vein- no pulsations. Palpation/Percussion- Normal PMI, no palpable thrill Auscultation- Regular rate and rhythm. No murmur noted in sitting, supine positions. Extremities- no digital clubbing, cyanosis, edema, increased warmth. Midline sternal scar ABDOMEN: Inspection- normal and no visible pulsations. Normal contour. Auscultation- Bowel sounds normal, no abdominal bruits. Palpation/Percussion- soft, non-tender, no rebound tenderness, no rigidity (guarding), no jar tenderness, no masses. Liver-no hepatomegaly, Spleen no splenomegaly, Hernias - none. Rectal not examined. He has no reproducible epigastric tenderness. No rebound, no chandler (GB removed), negative surgical abdomen. Peripheral Vascular: Upper extremity Left- Normal temperature with pink nailbeds and no ulcerations. Upper extremity Right- Normal temperature with pink nailbeds and no ulcerations. Lower extremity- Normal temperature with pink nailbeds and no ulcerations. DP pulses 2+ bilaterally. Pedal hair reduced/ diminished. Normal capillary refill. Edema- No edema. MOnofilament:10/10. Nails look okay, minimal callus, foot health looks good. Musculoskeletal: Generalized-No generalized swelling or edema of extremities, no digital clubbing or cyanosis, neurovascularly intact all four extremities. Upper extremity- Symmetrical posture. No visible deformity. Normal sensation along medial and lateral upper extremity proximally and distally. NO tenderness overlying shoulder, lateral/medial epicondyle. Trainman 5/5 and strength 5/5 bilateral UE. Elbow palpated, no tenderness overlying olecranon. Normal supination, pronation to active/passive ROM and to resisted rotation. Bicep insertion/tricep insertion appear normal without obvious pathology. Rotator cuff evaluated and intact. Normal wrist ROM bilaterally. Normal hand movement, intrinsic muscles of hands normal. No tenderness to palpation of hands/wrists/ elbows. Lower extremity- Hip: Not tender to palpation, no pain, no swelling, edema or erythema of surrounding tissue, normal strength and tone. Normal appearing hip ROM bilaterally without pain. Knee: Knee ROM normal. No tenderness overlying trochanters, no tenderness about patella, quad tendon, patellar tendon. No tenderness at tibial tuberosity. Ankle: normal ROM not tender to palpation along medial/lateral malleolus. Foot: Normal movement of toes, no tenderness bilateral feet/toes. Normal foot type. Spine/Ribs- No deformities, masses or tenderness, no known fractures, normal strength, Normal ROM. Normal stability No tenderness along C/T/L spine. Normal appearing ROM about spine. Neurological: General- Moves all 4 extremities symmetrically. Symmetrical face and body posture. Cranial nerves- individually evaluated II-XII and intact. PERRLA, Normal EOMI, visual/special senses appear intact, Face is symmetrical and normal sensation/movement, normal tongue, normal strength/posture of neck musculature. Reflexes- intact with DTR 2+ patellar, Achilles, bicep, brachial, tricep. Ankle clonus normal with 2 beats. Strength- 5/5 bilateral UE and LE. Soft touch- intact bilateral UE and LE. Temperature sensation- intact bilateral UE and LE. Neuropsych: Oriented- Person, place, time. (AAOx3), Mood/affect- normal and congruent. Able to articulate well. Speech-Normal speech, normal rate, normal tone, normal use of language, volume and coherence. Thought content- normal with ability to perform basic computations and apply abstract thought/reason. Associations- intact, no SI/HI, no hallucinations, delusions, obsessions. Judgment/insight- Appropriate. Memory-Recall intact, remote and recent memory intact. Knowledge- Age appropriate fund of knowledge, concentration and attention span normal. Lymphatic: Head/Neck- normal size and non tender to palpation. Axillary- normal size and non tender to palpation. Femoral and Inguinal- normal size and non tender to palpation. Plan: 1. Stress test was negative. Echocardiogram was negative for acute symptoms/ changes. Please keep appointment with cardiology on 01/16/19 2. Diabetes: Controlled. I have stopped the victoza. Continue the jardiance. 3. WEight loss/portion control/regular exercise encouraged. Current body mass index is 34.5. Address more at next office visit. 4. Call clinic tuesday to make appointment. 5. I will have you resume your dexilant 6. I will add carafate 1gram QID. 7. Blood pressure at goal of <140/90. 8. Diabetic ADA 1800 kcal diet. Admit/discharge same day.
[2019-01-07] MEDS ORDERED: PRAVACHOL PO SCH (21:00)
--- NOTE | 2019-01-08 07:46 | ECHOSTRESS ---
Date of Exam: 01/07/19 Ordering Physician: DR. ROSALIND GOODEN Reason for Echo: HTN, CHEST PAIN, CAD WITH STENTS 2016, HEART ATTACK 2011, STRESS TEST--NO ISCHEMIA M-Mode Normal Adult Results LV Dimensions Normal Adult Results AoV Opening excursions >1.6 LVEDD-base- 3.5-5.8 Ao root dimensions 2.0-3.7 LVESD-base- 3.1-4.6 L. Atrium dimensions 1.9-3.8 Post. Wall thickness 0.8-1.1 IV septum (thickness) 0.7-1.2 Post. Wall excursion 0.72-1.3 Septal motion Systolic motion R. Ventricular cavity 1.5-2.0 LVEF 60% Paradoxical septal wall motion 2-D: HYPOKINETIC SEPTUM AT REST AND WITH EXERCISE, NORMAL INFERIOR POST WALL AT REST AND POST EXERCISE M-MODE: MV: AV: TV: PV: CHAMBER SIZE: WALL MOTION: HYPOKINETIC SEPTUM AT REST AND WITH EXERCISE, NORMAL INFERIOR POST WALL AT REST AND POST EXERCISE PERICARDIUM: INTERPRETATION: 1. HYPOKINETIC SEPTUM AT REST AND WITH EXERCISE, NORMAL INFERIOR POST WALL AT REST AND POST EXERCISE MTDD
--- NOTE | 2019-01-08 07:58 | STRESSECHO ---
Date of Test: 01/07/19 Ordering Physician: DR. ROSALIND GODOEN Occupation: DISABLED Reason for Exam: CHEST PAIN, CAD X4 STENTS, HTN, CABG 2011 Smoking History: QUIT 7 YRS AGO Height: 63" Weight: 197 LBS Current Medications: ASA, JARDIANCE, DEXILANT, PLAVIX, VICTOZA, LISINOPRIL, PRAVASTATIN Resting EKG: SINUS RHYTHM, NONSPECIFIC ST-T WAVE CHANGE Target Heart Rate: 136/161 S-T SEGMENT STAGE MPH/GRADE HEART RATE BPM BLOOD PRESSURE MMHG RHYTHM +/- ELEVATION DEPRESSION SYMPTOMS AT REST 70 BPM 110/78 MMHG SR X NONE 1 1.7/10% 97 BPM 140/76 MMHG SR X NONE 2 2.5/12% 3 3.4/14% 4 4.2/16% 5 5.0/18% Immediately After 108 BPM SR X SHORT OF AIR Minutes Post Exercise 5 74 BPM 112/78 MMHG SR X NONE Minutes Post Exercise 6 70 BPM SR X NONE DURATION OF EXERCISE: 3:46 MAXIMUM HEART RATE REACHED: 108 BPM REASON FOR TERMINATION: SHORT OF AIR 92% OXYGEN WITH EXERCISE ON ROOM AIR METS: 6.4 INTERPRETATION: 1. NO ST-T WAVE CHANGES SUGGESTIVE OF ISCHEMIA FROM HEART RATE RESTING 70 BPM TO 108 BPM WITH EXERCISE 2. NO CHEST PAIN OR DISCOMFORT 3. NO ARRHYTHMIAS 4. BLOOD PRESSURE RESPONSE: ADEQUATE HYPOKINETIC SEPTUM AT REST AND UNCHANGED WITH EXERCISE/ LEFT VENTRICLE POST INFERIOR WALL NORMAL CONTRACTILITY--RESTING AND POST EXERCISE MTDD
--- NOTE | 2019-01-08 08:11 | ECHO2D ---
Date of Exam: 01/07/19 Ordering Physician: DR. ROSALIND GOODEN Room #: 122 Reason for Echo: CHEST PAIN, CAD WITH STENTS, [place] 2011 M-Mode Normal Adult Results LV Dimensions Normal Adult Results AoV Opening excursions >1.6 >1.6 LVEDD-base- 3.5-5.8 3.7 Ao root dimensions 2.0-3.7 3.4 LVESD-base- 3.1-4.6 L. Atrium dimensions 1.9-3.8 4.8 Post. Wall thickness 0.8-1.1 1.1 IV septum (thickness) 0.7-1.2 1.3 Post. Wall excursion 0.72-1.3 NORMAL Septal motion 0.2 Systolic motion R. Ventricular cavity 1.5-2.0 NORMAL LVEF 60% 50-55% Paradoxical septal wall motion NORMAL 2-D : ENLARGED LEFT ATRIAL CAVITY--HYPOKINETIC SEPTUM--NORMAL VALVES, NO EFFUSION, NO THROMBUS M-MODE: MV: NORMAL AV: NORMAL TV: NORMAL PV: CHAMBER SIZE: ENLARGED LEFT ATRIAL CAVITY WALL MOTION: HYPOKINETIC SEPTUM PERICARDIUM: NORMAL INTERPRETATION: 1. LEFT VENTRICULAR HYPERTROPHY WITH ENLARGED LEFT ATRIAL CAVITY 2. HYPOKINETIC SEPTUM EJECTION FRACTION 50 TO 55% 3. NORMAL VALVES MTDD
== END 2019-01-07 14:35 | disposition home or self-care (01) ==
LOC: ED 23:07 → MEDSURG B 01-07 01:14
PROVIDERS: ADMIT Family Medicine; ATTEND Family Medicine
DX: R07.9 Chest pain, unspecified (principal); R14.0 Abdominal distension (gaseous); E11.9 Type 2 diabetes mellitus without complications; E78.5 Hyperlipidemia, unspecified; I25.10 Atherosclerotic heart disease of native coronary artery without angina pectoris; I10 Essential (primary) hypertension; L98.9 Disorder of the skin and subcutaneous tissue, unspecified; F41.9 Anxiety disorder, unspecified; R10.13 Epigastric pain; R06.02 Shortness of breath; R05 Cough; R61 Generalized hyperhidrosis; Z68.34 Body mass index [BMI] 34.0-34.9, adult; Z87.891 Personal history of nicotine dependence
CPT/HCPCS: 36415; 80048; 80053; 80061; 82550; 82962; 83036; 83690; 84484; 85025; 85379; 93005; 93010; 96374; 96375; 99284

== ENCOUNTER 2019-01-10 09:20 | Outpatient (CLI) | payer OTHER | END 2019-01-10 09:21 | disposition home or self-care (01) | LOC: RHC-LAB 09:20 → FCC-LAB 09:21 | PROVIDERS: ATTEND Family Medicine | DX: R19.7 Diarrhea, unspecified (principal) | CPT/HCPCS: 36415 ==